=== PATIENT | female | born 1995 | race Caucasian/White ===

== ENCOUNTER 2016-07-26 14:55 | Emergency (ER) | payer MEDICAID | END 2016-07-26 18:33 | disposition home or self-care (01) | LOC: D.ER 14:55 | DX: J20.9 Acute bronchitis, unspecified (principal); J01.90 Acute sinusitis, unspecified; F41.9 Anxiety disorder, unspecified; F41.0 Panic disorder [episodic paroxysmal anxiety]; J45.909 Unspecified asthma, uncomplicated ==

== ENCOUNTER 2017-04-12 11:03 | Emergency (ER) | payer MEDICAID | END 2017-04-12 12:10 | disposition home or self-care (01) | LOC: D.ER 11:03 | DX: R51 Headache (principal) ==

== ENCOUNTER 2017-06-13 12:20 | Emergency (ER) | payer MEDICAID ==
[2017-06-13 12:48] LABS: BASOPHILS 0.1 % (0-2); EOSINOPHILS 1.3 % (0-7); HEMATOCRIT 40.8 % (36.0-48.0); HEMOGLOBIN 14.2 g/dL (12-16); IMMATURE GRANULOCYTES 0.1 % (0-5); LYMPHOCYTES 31.3 % (15-50); MCH 30.5 pg (26.0-34.0); MCHC 34.8 g/dL (31.0-37.0); MCV 87.6 fL (80.0-100.0); MEAN PLATELET VOLUME 9.5 fL (7.4-10.4); MONOCYTES 4.9 % (2-11); NEUTROPHILS 62.3 % (40-80); RBC 4.66 10x6/uL (4.00-5.40); RDW 12.4 % (11.5-14.5)
[2017-06-13 12:56] LABS: PLATELET COUNT 273 10x3/uL (130-400)
[2017-06-13 12:58] LABS: ALBUMIN 3.3 g/dL (3.4-5.0); ALKALINE PHOSPHATASE 105 U/L (46-116); ALT (SGPT) 27 U/L (10-68); BILIRUBIN - TOTAL 0.31 mg/dL (0.2-1.3); CALC OSMOLALITY 279 mosm/kg (275-300); CALCIUM 8.9 mg/dL (8.5-10.1); CARBON DIOXIDE 29.5 mmol/L (21.0-32.0); CHLORIDE - SERUM 106 mmol/L (98-107); CREATININE - SERUM 0.9 mg/dL (0.6-1.3); GLUCOSE 112 mg/dL (74-106); POTASSIUM - SERUM 3.7 mmol/L (3.5-5.1); PROTEIN - SERUM 7.3 g/dL (6.4-8.2); SODIUM 140 mmol/L (136-145); UREA NITROGEN 12 mg/dL (7-18); eGFR NON AFRICAN AMERICAN 82 mL/min (90-120)
[2017-06-13 13:03] LABS: TROPONIN-I < 0.017 ng/mL (0.000-0.060)
[2017-06-13 14:08] LABS: HCG URINE NEGATIVE (NEGATIVE)
[2017-06-13 14:19] LABS: APPEARANCE SLT CLOUDY (CLEAR); BILIRUBIN NEGATIVE (NEGATIVE); COLOR YELLOW (YELLOW); GLUCOSE NEGATIVE (NEGATIVE); KETONE NEGATIVE (NEGATIVE); NITRITE NEGATIVE (NEGATIVE); PROTEIN NEGATIVE (NEGATIVE); SPECIFIC GRAVITY 1.015 (1.005-1.020)
[2017-06-13 14:21] LABS: AMORPHOUS SEDIMENT <1+ /lpf (NONE SEEN); BACTERIA MODERATE /hpf (NONE SEEN); EPITHELIAL CELLS 0-5 /hpf (0-5); MUCUS <1+ /lpf (NONE SEEN); RED CELLS - URINE RARE /hpf (0-5)
== END 2017-06-13 14:37 | disposition home or self-care (01) ==
LOC: D.ER 12:20
PROVIDERS: Family Medicine; Nurse Practitioner Family
DX: R09.1 Pleurisy (principal); R07.89 Other chest pain

== ENCOUNTER 2017-06-17 20:19 | Emergency (ER) | payer MEDICAID | END 2017-06-17 21:54 | disposition home or self-care (01) | LOC: D.ER 20:19 | DX: R09.1 Pleurisy (principal) ==

== ENCOUNTER 2017-08-02 20:50 | Emergency (ER) | payer MEDICAID ==
[2017-08-02 21:55] LABS: BASOPHILS 0.2 % (0-2); EOSINOPHILS 0.7 % (0-7); HEMATOCRIT 43.5 % (36.0-48.0); HEMOGLOBIN 15.5 g/dL (12-16); IMMATURE GRANULOCYTES 0.1 % (0-5); LYMPHOCYTES 5.1 % (15-50); MCH 31.2 pg (26.0-34.0); MCHC 35.6 g/dL (31.0-37.0); MCV 87.5 fL (80.0-100.0); MEAN PLATELET VOLUME 9.6 fL (7.4-10.4); NEUTROPHILS 87.9 % (40-80); PLATELET COUNT 289 10x3/uL (130-400); RBC 4.97 10x6/uL (4.00-5.40); RDW 12.2 % (11.5-14.5); WBC 12.3 10x3/uL (4.8-10.8)
[2017-08-02 22:09] LABS: HCG URINE NEGATIVE (NEGATIVE)
[2017-08-02 22:10] LABS: APPEARANCE CLEAR (CLEAR); BILIRUBIN NEGATIVE (NEGATIVE); COLOR YELLOW (YELLOW); GLUCOSE NEGATIVE (NEGATIVE); KETONE MODERATE mg/dL (NEGATIVE); NITRITE NEGATIVE (NEGATIVE); PROTEIN NEGATIVE (NEGATIVE); UROBILINOGEN NORMAL (NORMAL)
[2017-08-02 22:12] LABS: BACTERIA FEW /hpf (NONE SEEN)
[2017-08-02 22:14] LABS: ALBUMIN 3.8 g/dL (3.4-5.0); ALKALINE PHOSPHATASE 91 U/L (46-116); ALT (SGPT) 23 U/L (10-68); AMYLASE - SERUM 75 U/L (25-115); BILIRUBIN - TOTAL 0.53 mg/dL (0.2-1.3); CALC OSMOLALITY 275 mosm/kg (275-300); CARBON DIOXIDE 27.1 mmol/L (21.0-32.0); CHLORIDE - SERUM 102 mmol/L (98-107); CREATININE - SERUM 0.9 mg/dL (0.6-1.3); GLUCOSE 110 mg/dL (74-106); LIPASE 150 U/L (73-393); POTASSIUM - SERUM 4.4 mmol/L (3.5-5.1); PROTEIN - SERUM 7.8 g/dL (6.4-8.2); SODIUM 137 mmol/L (136-145); UREA NITROGEN 16 mg/dL (7-18); eGFR NON AFRICAN AMERICAN 82 mL/min (90-120)
== END 2017-08-02 22:40 | disposition home or self-care (01) ==
LOC: D.ER 20:50
PROVIDERS: Emergency Medicine
DX: R10.11 Right upper quadrant pain (principal)

== ENCOUNTER 2017-09-01 11:15 | Emergency (ER) | payer MEDICAID ==
[2017-09-01 12:11] LABS: BASOPHILS 0.2 % (0-2); EOSINOPHILS 1.8 % (0-7); HEMATOCRIT 40.6 % (36.0-48.0); HEMOGLOBIN 14.1 g/dL (12-16); IMMATURE GRANULOCYTES 0.2 % (0-5); LYMPHOCYTES 25.9 % (15-50); MCH 30.2 pg (26.0-34.0); MCHC 34.7 g/dL (31.0-37.0); MCV 86.9 fL (80.0-100.0); MEAN PLATELET VOLUME 9.3 fL (7.4-10.4); MONOCYTES 4.9 % (2-11); PLATELET COUNT 313 10x3/uL (130-400); RBC 4.67 10x6/uL (4.00-5.40); RDW 12.2 % (11.5-14.5); WBC 8.3 10x3/uL (4.8-10.8)
[2017-09-01 12:14] LABS: APPEARANCE HAZY (CLEAR); BACTERIA MANY /hpf (NONE SEEN); BILIRUBIN NEGATIVE (NEGATIVE); COLOR YELLOW (YELLOW); GLUCOSE NEGATIVE (NEGATIVE); KETONE NEGATIVE (NEGATIVE); MUCUS <1+ /lpf (NONE SEEN); NITRITE NEGATIVE (NEGATIVE); PROTEIN NEGATIVE (NEGATIVE); RED CELLS - URINE 0-5 /hpf (0-5); UROBILINOGEN NORMAL (NORMAL)
[2017-09-01 12:40] LABS: ALBUMIN 3.6 g/dL (3.4-5.0); ALKALINE PHOSPHATASE 83 U/L (46-116); ALT (SGPT) 20 U/L (10-68); AMYLASE - SERUM 64 U/L (25-115); BILIRUBIN - TOTAL 0.48 mg/dL (0.2-1.3); C-REACTIVE PROTEIN 1.7 mg/dL (0.0-0.9); CALC OSMOLALITY 271 mosm/kg (275-300); CARBON DIOXIDE 26.5 mmol/L (21.0-32.0); CHLORIDE - SERUM 103 mmol/L (98-107); CREATININE - SERUM 0.8 mg/dL (0.6-1.3); GLUCOSE 85 mg/dL (74-106); LIPASE 122 U/L (73-393); POTASSIUM - SERUM 3.6 mmol/L (3.5-5.1); PROTEIN - SERUM 7.6 g/dL (6.4-8.2); SODIUM 137 mmol/L (136-145); UREA NITROGEN 10 mg/dL (7-18); eGFR NON AFRICAN AMERICAN > 90 mL/min (90-120)
[2017-10-08 00:36] VITALS: BMI 38.9
== END 2017-09-01 16:39 | disposition home or self-care (01) ==
LOC: D.ER 11:15
PROVIDERS: Emergency Medicine
DX: R10.9 Unspecified abdominal pain (principal); N39.0 Urinary tract infection, site not specified; N76.0 Acute vaginitis

== ENCOUNTER 2017-10-07 19:43 | Inpatient (IN) | payer MEDICAID ==
[~2017-10-07] VITALS: Ht 177.8 cm; Wt 132.8 kg
--- NOTE | ~2017-10-07 | CN ---
PATIENT NAME:BEBETO PATTON MEDICAL RECORD: [id number] : [birth year] LOCATION:[id number] ADMIT DATE: 10/07/17 ACCOUNT: [id number] CONSULTING PHYSICIAN: MICKI LAZO III, MD REFERRING PHYSICIAN: BLADIMIR RICHARDS DO DATE OF CONSULTATION: 10/08/2017 FINDINGS: A 22-year-old unmarried white female who was admitted through the Emergency Department following an intentional overdose of benzodiazepines and opiates. Drug screen was positive for both of these substances. The patient lefted very explicitly who did note addressed to her family apologizing for her suicide. The family has the note in their possession. The patient's father was interviewed at some length. The patient has been under extreme stress over the last several years. Her mother rather suddenly in 2015. The patient had been engaged for some time to a young man and was actually due to have him within the last week or so. However, he abruptly ended their relationship. The patient expressed in her note that she was devastated by this turn of events. The patient has been previously hospitalized at [facility]. At the present time, she is being followed at [facility] and is receiving medication for bipolar disorder. For some reason, however, she also had access to opiates. One of the listed medications on the intake form included Xanax 1 mg t.i.d. Other listed medications included Ambien, Abilify, and doxepin as well as hydrocodone. At the present time, the patient remains obtunded. She is receiving respiratory support secondary to her overdose. Under the circumstances, the patient should be considered an immediate threat to her own safety due to the fact that she has a preexisting mood disorder, has undergone severe crisis, and has made an obvious attempt on her own life. We would strongly recommend inpatient treatment. DIAGNOSTIC IMPRESSION: Bipolar disorder -- depressed phase. PLAN: WE would recommend inpatient treatment when medically stable. The patient's family indicated that they would prefer [facility]. TRANSINT:[id number] Voice Confirmation ID: [id number] DOCUMENT ID: [id number] MICKI LAZO III, MD at 2052 CC: [id number] DICTATION DATE: 10/08/17 121 LIQUEFACTION AND REGASIFICATION HELPER: 10/08/17 1238 ADM IN [facility] [address] [place] [address]
[2017-10-07 20:43] LABS: BASOPHILS 0.2 % (0-2); EOSINOPHILS 2.4 % (0-7); HEMATOCRIT 37.3 % (36.0-48.0); HEMOGLOBIN 12.9 g/dL (12-16); IMMATURE GRANULOCYTES 0.2 % (0-5); LYMPHOCYTES 35.2 % (15-50); MCH 30.3 pg (26.0-34.0); MCHC 34.6 g/dL (31.0-37.0); MCV 87.6 fL (80.0-100.0); MEAN PLATELET VOLUME 9.4 fL (7.4-10.4); MONOCYTES 5.6 % (2-11); NEUTROPHILS 56.4 % (40-80); PLATELET COUNT 268 10x3/uL (130-400); RBC 4.26 10x6/uL (4.00-5.40); RDW 12.8 % (11.5-14.5); WBC 8.8 10x3/uL (4.8-10.8)
[2017-10-07 20:54] LABS: HCG SERUM NEGATIVE (NEGATIVE)
[2017-10-07 20:55] LABS: UDS - AMPHET NEGATIVE QUAL (NEGATIVE); UDS - BARB NEGATIVE QUAL (NEGATIVE); UDS - BENZO POSITIVE QUAL (NEGATIVE); UDS - COCAINE NEGATIVE QUAL (NEGATIVE); UDS - OPIATE POSITIVE QUAL (NEGATIVE); UDS - PCP NEGATIVE QUAL (NEGATIVE); UDS - THC NEGATIVE QUAL (NEGATIVE)
[2017-10-07 20:56] LABS: ALBUMIN 3.1 g/dL (3.4-5.0); ALKALINE PHOSPHATASE 77 U/L (46-116); ALT (SGPT) 22 U/L (10-68); CALC OSMOLALITY 280 mosm/kg (275-300); CALCIUM 8.6 mg/dL (8.5-10.1); CARBON DIOXIDE 22.4 mmol/L (21.0-32.0); CHLORIDE - SERUM 109 mmol/L (98-107); CREATININE - SERUM 0.8 mg/dL (0.6-1.3); GLUCOSE 99 mg/dL (74-106); PROTEIN - SERUM 6.6 g/dL (6.4-8.2); SODIUM 141 mmol/L (136-145); UREA NITROGEN 12 mg/dL (7-18); eGFR NON AFRICAN AMERICAN > 90 mL/min (90-120)
[2017-10-08] VITALS (27 sets, daily range): BP systolic 102–167; BP diastolic 59–98; Ht 177.8 cm; Wt 132.8 kg
[2017-10-08] MEDS ORDERED: XANAX1 MG PO ×2 (01:20→10:31)
[2017-10-08] MEDS ORDERED: LAMICTAL200 MG PO (01:21)
[2017-10-08] MEDS ORDERED: AMBIEN10 MG PO (01:21)
[2017-10-08] MEDS ORDERED: DOXEPIN HCL ×2 (01:22→01:26)
[2017-10-08] MEDS ORDERED: PROMETHAZINE (01:22)
[2017-10-08] MEDS ORDERED: MACROBID100 MG (01:23)
[2017-10-08] MEDS ORDERED: PHENERGAN25 M1 (01:23)
[2017-10-08] MEDS ORDERED: FLAGYL500 MG (01:23)
[2017-10-08] MEDS ORDERED: HYDROCODON-ACE1 EAC7 (01:23)
[2017-10-08] MEDS ORDERED: ABILIFY10 MG (01:24)
[2017-10-08] MEDS ORDERED: NAPROSYN500 MG (01:24)
[2017-10-08] MEDS ORDERED: PROPRANOLOL HCL20 MG (01:24)
[2017-10-08] MEDS ORDERED: ZANTAC150 MG (01:25)
[2017-10-08] MEDS ORDERED: ETHINYL ESTRADIOL ×2 (01:25→01:26)
[2017-10-08] MEDS ORDERED: ETONOGESTREL ×2 (01:25→01:26)
[2017-10-08] MEDS ORDERED: ARIPIPRAZOLE TAB 5MG (01:25)
[2017-10-08] MEDS ORDERED: TAMIFLU75 MG (01:26)
[2017-10-08] MEDS ORDERED: ATOMOXETINE (01:26)
[2017-10-08 04:34] LABS: BASOPHILS 0.2 % (0-2); EOSINOPHILS 1.8 % (0-7); HEMATOCRIT 37.6 % (36.0-48.0); HEMOGLOBIN 12.9 g/dL (12-16); IMMATURE GRANULOCYTES 0.1 % (0-5); LYMPHOCYTES 23.2 % (15-50); MCH 29.8 pg (26.0-34.0); MCHC 34.3 g/dL (31.0-37.0); MCV 86.8 fL (80.0-100.0); MEAN PLATELET VOLUME 9.6 fL (7.4-10.4); MONOCYTES 7.5 % (2-11); NEUTROPHILS 67.2 % (40-80); PLATELET COUNT 276 10x3/uL (130-400); RBC 4.33 10x6/uL (4.00-5.40); RDW 12.6 % (11.5-14.5); WBC 8.3 10x3/uL (4.8-10.8)
[2017-10-08 04:57] LABS: ALBUMIN 3.1 g/dL (3.4-5.0); ALKALINE PHOSPHATASE 74 U/L (46-116); ALT (SGPT) 22 U/L (10-68); BILIRUBIN - TOTAL 0.52 mg/dL (0.2-1.3); CALC OSMOLALITY 281 mosm/kg (275-300); CALCIUM 8.5 mg/dL (8.5-10.1); CARBON DIOXIDE 25.2 mmol/L (21.0-32.0); CHLORIDE - SERUM 107 mmol/L (98-107); CREATININE - SERUM 0.8 mg/dL (0.6-1.3); GLUCOSE 96 mg/dL (74-106); MAGNESIUM - SERUM 1.9 mg/dL (1.8-2.4); POTASSIUM - SERUM 3.5 mmol/L (3.5-5.1); PROTEIN - SERUM 6.8 g/dL (6.4-8.2); SODIUM 142 mmol/L (136-145); UREA NITROGEN 9 mg/dL (7-18); eGFR NON AFRICAN AMERICAN > 90 mL/min (90-120)
[2017-10-08] MEDS ORDERED: SINEQUAN50 MG PO (10:32)
[2017-10-08] MEDS ORDERED: LAMICTAL XR200 MG PO (10:32)
[2017-10-08] MEDS ORDERED: PHENERGAN25 M1 PO (10:33)
[2017-10-08] MEDS ORDERED: PROPRANOLOL HCL20 MG PO (10:34)
[2017-10-08] MEDS ORDERED: ZANTAC150 MG PO (10:34)
[2017-10-09] VITALS (24 sets, daily range): BP systolic 99–157; BP diastolic 60–91
[2017-10-09 04:31] LABS: BASOPHILS 0.2 % (0-2); EOSINOPHILS 1.9 % (0-7); HEMOGLOBIN 12.7 g/dL (12-16); IMMATURE GRANULOCYTES 0.3 % (0-5); LYMPHOCYTES 19.9 % (15-50); MCH 30.4 pg (26.0-34.0); MCHC 34.3 g/dL (31.0-37.0); MCV 88.5 fL (80.0-100.0); MEAN PLATELET VOLUME 9.5 fL (7.4-10.4); MONOCYTES 7.8 % (2-11); NEUTROPHILS 69.9 % (40-80); PLATELET COUNT 241 10x3/uL (130-400); RBC 4.18 10x6/uL (4.00-5.40); RDW 12.9 % (11.5-14.5)
[2017-10-09 04:51] LABS: ALBUMIN 2.7 g/dL (3.4-5.0); ALKALINE PHOSPHATASE 75 U/L (46-116); ALT (SGPT) 16 U/L (10-68); CALC OSMOLALITY 281 mosm/kg (275-300); CALCIUM 8.4 mg/dL (8.5-10.1); CARBON DIOXIDE 26.3 mmol/L (21.0-32.0); CHLORIDE - SERUM 108 mmol/L (98-107); CREATININE - SERUM 0.8 mg/dL (0.6-1.3); GLUCOSE 96 mg/dL (74-106); MAGNESIUM - SERUM 1.7 mg/dL (1.8-2.4); PHOSPHOROUS 4.3 mg/dL (2.5-4.9); POTASSIUM - SERUM 3.4 mmol/L (3.5-5.1); PROTEIN - SERUM 6.3 g/dL (6.4-8.2); SODIUM 143 mmol/L (136-145); UREA NITROGEN 5 mg/dL (7-18); VANCOMYCIN - TROUGH 4.6 ug/mL (10.0-20.0); eGFR NON AFRICAN AMERICAN > 90 mL/min (90-120)
[2017-10-10] VITALS (19 sets, daily range): BP systolic 102–139; BP diastolic 60–93
[2017-10-10 03:42] LABS: BASOPHILS 0.2 % (0-2); EOSINOPHILS 1.5 % (0-7); HEMATOCRIT 34.9 % (36.0-48.0); HEMOGLOBIN 11.8 g/dL (12-16); IMMATURE GRANULOCYTES 0.1 % (0-5); LYMPHOCYTES 17.1 % (15-50); MCH 29.8 pg (26.0-34.0); MCHC 33.8 g/dL (31.0-37.0); MCV 88.1 fL (80.0-100.0); MEAN PLATELET VOLUME 9.2 fL (7.4-10.4); MONOCYTES 8.2 % (2-11); NEUTROPHILS 72.9 % (40-80); PLATELET COUNT 224 10x3/uL (130-400); RBC 3.96 10x6/uL (4.00-5.40); RDW 12.9 % (11.5-14.5); WBC 10.4 10x3/uL (4.8-10.8)
[2017-10-10 04:15] LABS: CALC OSMOLALITY 275 mosm/kg (275-300); CALCIUM 8.2 mg/dL (8.5-10.1); CARBON DIOXIDE 26.4 mmol/L (21.0-32.0); CHLORIDE - SERUM 106 mmol/L (98-107); CREATININE - SERUM 0.8 mg/dL (0.6-1.3); GLUCOSE 108 mg/dL (74-106); MAGNESIUM - SERUM 1.7 mg/dL (1.8-2.4); PHOSPHOROUS 5.1 mg/dL (2.5-4.9); SODIUM 139 mmol/L (136-145); UREA NITROGEN 5 mg/dL (7-18); eGFR NON AFRICAN AMERICAN > 90 mL/min (90-120)
[2017-10-10 18:10] LABS: AFB SPECIMEN PROCESSING Concentration (())
[2017-10-11] VITALS (8 sets, daily range): BP systolic 135–151; BP diastolic 80–96
[2017-10-11 04:08] LABS: BASOPHILS 0.2 % (0-2); EOSINOPHILS 4.1 % (0-7); HEMATOCRIT 35.9 % (36.0-48.0); HEMOGLOBIN 12.2 g/dL (12-16); IMMATURE GRANULOCYTES 0.1 % (0-5); LYMPHOCYTES 21.2 % (15-50); MCH 29.9 pg (26.0-34.0); MEAN PLATELET VOLUME 9.3 fL (7.4-10.4); MONOCYTES 7.9 % (2-11); NEUTROPHILS 66.5 % (40-80); PLATELET COUNT 239 10x3/uL (130-400); RBC 4.08 10x6/uL (4.00-5.40); RDW 12.8 % (11.5-14.5)
[2017-10-11 04:26] LABS: CALC OSMOLALITY 280 mosm/kg (275-300); CALCIUM 8.6 mg/dL (8.5-10.1); CARBON DIOXIDE 24.8 mmol/L (21.0-32.0); CHLORIDE - SERUM 107 mmol/L (98-107); CREATININE - SERUM 0.8 mg/dL (0.6-1.3); GLUCOSE 115 mg/dL (74-106); POTASSIUM - SERUM 3.4 mmol/L (3.5-5.1); SODIUM 142 mmol/L (136-145); UREA NITROGEN 4 mg/dL (7-18); eGFR NON AFRICAN AMERICAN > 90 mL/min (90-120)
[2017-10-11] MEDS ORDERED: VENTOLIN HFA18 GM IH (15:56)
[2017-10-11] MEDS ORDERED: OMNICEF300 MG PO (16:03)
[2017-10-11] MEDS ORDERED: VIBRAMYCIN 100100 MG PO (16:04)
[2017-10-11] MEDS ORDERED: MUCINEX600 MG PO (16:40)
[2017-10-13 11:13] LABS: FUNGUS STAIN Final report (())
[2017-11-07 17:12] LABS: FUNGUS MYCOLOGY CULTURE Final report (())
[2017-12-01 18:09] LABS: ACID FAST CULTURE Negative (()); ACID FAST SMEAR Negative (())
== END 2017-10-11 17:40 | disposition short-term general hospital (02) | DRG 917 ==
LOC: D.ER 19:43 → D.ICU 21:50 → D.EDHOLD 21:50 → D.ICU 22:52
PROVIDERS: Family Medicine; Internal Medicine Pulmonary Disease
PROC: 0BH17EZ Insertion of Endotracheal Airway into Trachea, Via Natural or Artificial Opening (ICD-10-PCS; 2017-10-07)
PROC: 5A1945Z Respiratory Ventilation, 24-96 Consecutive Hours (ICD-10-PCS; principal; 2017-10-08)
PROC: 0B978ZZ Drainage of Left Main Bronchus, Via Natural or Artificial Opening Endoscopic (ICD-10-PCS; 2017-10-08)
PROC: 0B938ZZ Drainage of Right Main Bronchus, Via Natural or Artificial Opening Endoscopic (ICD-10-PCS; 2017-10-08)
DX: T42.6X2A Poisoning by other antiepileptic and sedative-hypnotic drugs, intentional self-harm, initial encounter (principal); J96.00 Acute respiratory failure, unspecified whether with hypoxia or hypercapnia; J69.0 Pneumonitis due to inhalation of food and vomit; F33.9 Major depressive disorder, recurrent, unspecified; J45.909 Unspecified asthma, uncomplicated; F41.8 Other specified anxiety disorders

== ENCOUNTER 2018-03-04 20:46 | Emergency (ER) | payer MEDICAID ==
[~2018-03-04] VITALS: Ht 177.8 cm; Wt 110.5 kg
[~2018-03-04 20:46] MED LIST: ABILIFY10 MG; AMBIEN10 MG PO; ARIPIPRAZOLE TAB 5MG; ATOMOXETINE; DOXEPIN HCL; ETHINYL ESTRADIOL; ETONOGESTREL; FLAGYL500 MG; HYDROCODON-ACE1 EAC7; LAMICTAL XR200 MG PO; LAMICTAL200 MG PO; MACROBID100 MG; MUCINEX600 MG PO; NAPROSYN500 MG; OMNICEF300 MG PO; PHENERGAN25 M1; PHENERGAN25 M1 PO; PROMETHAZINE; PROPRANOLOL HCL20 MG; PROPRANOLOL HCL20 MG PO; SINEQUAN50 MG PO; TAMIFLU75 MG; VENTOLIN HFA18 GM IH; VIBRAMYCIN 100100 MG PO; XANAX1 MG PO; ZANTAC150 MG; ZANTAC150 MG PO
[2018-03-04 21:10] VITALS: Ht 177.8 cm; Wt 110.5 kg
[2018-03-04] MEDS ORDERED: ABILIFY10 MG (21:11)
[2018-03-04] MEDS ORDERED: BUPROPION HCL75 MG PO (21:11)
[2018-03-04] MEDS ORDERED: PHENERGAN25 M1 PO (22:31)
[2018-03-04 22:54] VITALS: BP 105/68
== END 2018-03-04 22:53 | disposition home or self-care (01) ==
LOC: D.ER 20:46
DX: G43.909 Migraine, unspecified, not intractable, without status migrainosus (principal); R11.0 Nausea

== ENCOUNTER 2018-03-12 18:22 | Emergency (ER) | payer MEDICAID ==
[~2018-03-12] VITALS: Ht 177.8 cm; Wt 110.0 kg
[~2018-03-12 18:22] MED LIST changes: +BUPROPION HCL75 MG PO
[2018-03-12 18:40] VITALS: Ht 177.8 cm; Wt 110.0 kg
[2018-03-12 19:07] LABS: BASOPHILS 0.1 % (0-2); EOSINOPHILS 0.8 % (0-7); HEMATOCRIT 41.7 % (36.0-48.0); HEMOGLOBIN 14.8 g/dL (12-16); IMMATURE GRANULOCYTES 0.1 % (0-5); LYMPHOCYTES 26.4 % (15-50); MCHC 35.5 g/dL (31.0-37.0); MCV 87.2 fL (80.0-100.0); MEAN PLATELET VOLUME 9.6 fL (7.4-10.4); MONOCYTES 6.3 % (2-11); NEUTROPHILS 66.3 % (40-80); RBC 4.78 10x6/uL (4.00-5.40); RDW 12.5 % (11.5-14.5); WBC 8.3 10x3/uL (4.8-10.8)
[2018-03-12 19:12] LABS: PLATELET COUNT 312 10x3/uL (130-400)
[2018-03-12 19:37] LABS: ALBUMIN 3.5 g/dL (3.4-5.0); ALKALINE PHOSPHATASE 90 U/L (46-116); ALT (SGPT) 25 U/L (10-68); BILIRUBIN - TOTAL 0.21 mg/dL (0.2-1.3); CALC OSMOLALITY 278 mosm/kg (275-300); CALCIUM 9.1 mg/dL (8.5-10.1); CARBON DIOXIDE 28.6 mmol/L (21.0-32.0); CHLORIDE - SERUM 101 mmol/L (98-107); CREATININE - SERUM 0.9 mg/dL (0.6-1.3); GLUCOSE 100 mg/dL (74-106); POTASSIUM - SERUM 3.8 mmol/L (3.5-5.1); SODIUM 140 mmol/L (136-145); UREA NITROGEN 13 mg/dL (7-18); eGFR NON AFRICAN AMERICAN 82 mL/min (90-120)
[2018-03-12 21:15] LABS: APPEARANCE CLOUDY (CLEAR); BILIRUBIN NEGATIVE (NEGATIVE); COLOR YELLOW (YELLOW); GLUCOSE NEGATIVE (NEGATIVE); KETONE NEGATIVE (NEGATIVE); NITRITE NEGATIVE (NEGATIVE); PROTEIN NEGATIVE (NEGATIVE); SPECIFIC GRAVITY 1.015 (1.005-1.020); UROBILINOGEN NORMAL (NORMAL)
[2018-03-12 21:30] LABS: BACTERIA FEW /hpf (NONE SEEN); EPITHELIAL CELLS 0-5 /hpf (0-5); RED CELLS - URINE 0-5 /hpf (0-5); WHITE CELLS - URINE 0-5 /hpf (0-5)
[2018-03-12 22:48] VITALS: BP 122/76
== END 2018-03-12 22:15 | disposition home or self-care (01) ==
LOC: D.ER 18:22
PROVIDERS: Emergency Medicine; Family Medicine
DX: R55 Syncope and collapse (principal); S09.90XA Unspecified injury of head, initial encounter; W18.30XA Fall on same level, unspecified, initial encounter; Y93.89 Activity, other specified; Y92.019 Unspecified place in single-family (private) house as the place of occurrence of the external cause; S00.03XA Contusion of scalp, initial encounter

== ENCOUNTER 2018-04-10 13:05 | Emergency (ER) | payer MEDICAID ==
[~2018-04-10] VITALS: Ht 177.8 cm; Wt 111.8 kg
[2018-04-10 13:12] VITALS: Ht 177.8 cm; Wt 111.8 kg
[2018-04-10] MEDS ORDERED: ATIVAN0.5 MG (13:15)
[2018-04-10] MEDS ORDERED: ATIVAN0.5 MG PO (13:15)
[2018-04-10 13:43] LABS: BASOPHILS 0.2 % (0-2); EOSINOPHILS 0.7 % (0-7); HEMATOCRIT 43.5 % (36.0-48.0); IMMATURE GRANULOCYTES 0.1 % (0-5); LYMPHOCYTES 24.9 % (15-50); MCH 30.6 pg (26.0-34.0); MCHC 34.5 g/dL (31.0-37.0); MCV 88.8 fL (80.0-100.0); MEAN PLATELET VOLUME 9.7 fL (7.4-10.4); MONOCYTES 6.7 % (2-11); NEUTROPHILS 67.4 % (40-80); PLATELET COUNT 314 10x3/uL (130-400); RDW 12.6 % (11.5-14.5); WBC 10.3 10x3/uL (4.8-10.8)
[2018-04-10 13:49] LABS: APTT 50.3 SECONDS (22.8-39.4); INR 1.1 (0.85-1.17); PROTIME 13.8 SECONDS (11.6-15.0)
[2018-04-10 13:54] LABS: ALBUMIN 3.6 g/dL (3.4-5.0); ALKALINE PHOSPHATASE 84 U/L (46-116); ALT (SGPT) 21 U/L (10-68); BILIRUBIN - TOTAL 0.25 mg/dL (0.2-1.3); CALC OSMOLALITY 276 mosm/kg (275-300); CALCIUM 9.1 mg/dL (8.5-10.1); CARBON DIOXIDE 28.3 mmol/L (21.0-32.0); CHLORIDE - SERUM 103 mmol/L (98-107); CREATININE - SERUM 0.8 mg/dL (0.6-1.3); GLUCOSE 103 mg/dL (74-106); POTASSIUM - SERUM 3.9 mmol/L (3.5-5.1); PROTEIN - SERUM 7.8 g/dL (6.4-8.2); SODIUM 139 mmol/L (136-145); UREA NITROGEN 10 mg/dL (7-18); eGFR NON AFRICAN AMERICAN > 90 mL/min (90-120)
[2018-04-10 14:00] LABS: HCG SERUM NEGATIVE (NEGATIVE)
[2018-04-10] MEDS ORDERED: TORADOL10 MG PO (16:00)
[2018-04-10 16:49] VITALS: BP 122/76
== END 2018-04-10 16:49 | disposition home or self-care (01) ==
LOC: D.ER 13:05
PROVIDERS: Family Medicine
DX: S01.01XA Laceration without foreign body of scalp, initial encounter (principal); V43.52XA Car driver injured in collision with other type car in traffic accident, initial encounter; Y93.89 Activity, other specified; Y92.410 Unspecified street and highway as the place of occurrence of the external cause; M25.562 Pain in left knee; M25.511 Pain in right shoulder

== ENCOUNTER 2018-04-12 23:10 | Emergency (ER) | payer MEDICAID ==
[~2018-04-12] VITALS: Ht 177.8 cm; Wt 111.8 kg
[~2018-04-12 23:10] MED LIST changes: +ATIVAN0.5 MG; +ATIVAN0.5 MG PO; +TORADOL10 MG PO
[2018-04-12 23:22] VITALS: Ht 177.8 cm; Wt 111.8 kg
[2018-04-13] MEDS ORDERED: BUTALB-APAP-CA1 EACH PO (00:36)
[2018-04-13 01:12] VITALS: BP 140/75
== END 2018-04-13 01:13 | disposition home or self-care (01) ==
LOC: D.ER 23:10
DX: F07.81 Postconcussional syndrome (principal)

== ENCOUNTER 2018-06-11 11:12 | Emergency (ER) | payer MEDICAID ==
[~2018-06-11] VITALS: Ht 177.8 cm; Wt 115.5 kg
[~2018-06-11 11:12] MED LIST changes: +BUTALB-APAP-CA1 EACH PO
[2018-06-11 11:22] VITALS: BP 128/77; Ht 177.8 cm; Wt 115.5 kg
[2018-06-11] MEDS ORDERED: NUVA RING (11:23)
[2018-06-11] MEDS ORDERED: TESSALON PERLE100 MG PO (12:58)
[2018-06-11] MEDS ORDERED: ZPAK PO (12:58)
[2018-06-11] MEDS ORDERED: ALBUTEROL SULF8.5 GM INH (12:58)
== END 2018-06-11 13:37 | disposition home or self-care (01) ==
LOC: D.ER 11:12
DX: J40 Bronchitis, not specified as acute or chronic (principal); Z87.09 Personal history of other diseases of the respiratory system; R09.89 Other specified symptoms and signs involving the circulatory and respiratory systems; R50.9 Fever, unspecified

== ENCOUNTER 2018-07-19 01:07 | Emergency (ER) | payer MEDICAID ==
[~2018-07-19] VITALS: Ht 177.8 cm; Wt 110.0 kg
[~2018-07-19 01:07] MED LIST changes: +ALBUTEROL SULF8.5 GM INH; +NUVA RING; +TESSALON PERLE100 MG PO; +ZPAK PO
[2018-07-19 01:10] VITALS: Ht 177.8 cm; Wt 110.0 kg
[2018-07-19 01:33] LABS: BASOPHILS 0.2 % (0-2); EOSINOPHILS 0.8 % (0-7); HEMATOCRIT 41.9 % (36.0-48.0); HEMOGLOBIN 14.5 g/dL (12-16); IMMATURE GRANULOCYTES 0.2 % (0-5); LYMPHOCYTES 28.5 % (15-50); MCH 30.6 pg (26.0-34.0); MCHC 34.6 g/dL (31.0-37.0); MCV 88.4 fL (80.0-100.0); MEAN PLATELET VOLUME 9.6 fL (7.4-10.4); MONOCYTES 6.9 % (2-11); NEUTROPHILS 63.4 % (40-80); PLATELET COUNT 296 10x3/uL (130-400); RBC 4.74 10x6/uL (4.00-5.40); RDW 12.4 % (11.5-14.5); WBC 11.4 10x3/uL (4.8-10.8)
[2018-07-19 01:37] LABS: APPEARANCE CLEAR (CLEAR); BILIRUBIN NEGATIVE (NEGATIVE); COLOR YELLOW (YELLOW); GLUCOSE NEGATIVE (NEGATIVE); HCG URINE NEGATIVE (NEGATIVE); KETONE NEGATIVE (NEGATIVE); NITRITE NEGATIVE (NEGATIVE); PROTEIN NEGATIVE (NEGATIVE); SPECIFIC GRAVITY 1.015 (1.005-1.020); UROBILINOGEN NORMAL (NORMAL)
[2018-07-19 01:47] LABS: ALBUMIN 3.5 g/dL (3.4-5.0); ALKALINE PHOSPHATASE 69 U/L (46-116); ALT (SGPT) 28 U/L (10-68); BILIRUBIN - TOTAL 0.25 mg/dL (0.2-1.3); CALC OSMOLALITY 281 mosm/kg (275-300); CALCIUM 8.5 mg/dL (8.5-10.1); CARBON DIOXIDE 31.1 mmol/L (21.0-32.0); CHLORIDE - SERUM 103 mmol/L (98-107); GLUCOSE 94 mg/dL (74-106); POTASSIUM - SERUM 3.6 mmol/L (3.5-5.1); PROTEIN - SERUM 7.4 g/dL (6.4-8.2); SODIUM 141 mmol/L (136-145); UREA NITROGEN 14 mg/dL (7-18); eGFR NON AFRICAN AMERICAN 72 mL/min (90-120)
[2018-07-19 01:52] LABS: AMYLASE - SERUM 66 U/L (25-115); LIPASE 177 U/L (73-393); TROPONIN-I < 0.017 ng/mL (0.000-0.060)
[2018-07-19 02:42] VITALS: BP 128/70
== END 2018-07-19 02:40 | disposition home or self-care (01) ==
LOC: D.ER 01:07
PROVIDERS: Emergency Medicine
DX: R10.32 Left lower quadrant pain (principal); R11.10 Vomiting, unspecified

== ENCOUNTER 2018-11-05 14:50 | Emergency (ER) | payer MEDICAID ==
[~2018-11-05] VITALS: Ht 177.8 cm; Wt 105.9 kg
[2018-11-05 15:02] VITALS: Ht 177.8 cm; Wt 105.9 kg
[2018-11-05 15:43] LABS: BASOPHILS 0.2 % (0-2); EOSINOPHILS 0.3 % (0-7); HEMATOCRIT 41.5 % (36.0-48.0); HEMOGLOBIN 14.6 g/dL (12-16); IMMATURE GRANULOCYTES 0.1 % (0-5); MCH 31.3 pg (26.0-34.0); MCHC 35.2 g/dL (31.0-37.0); MCV 88.9 fL (80.0-100.0); MEAN PLATELET VOLUME 9.6 fL (7.4-10.4); MONOCYTES 4.8 % (2-11); NEUTROPHILS 65.6 % (40-80); PLATELET COUNT 312 10x3/uL (130-400); RBC 4.67 10x6/uL (4.00-5.40); RDW 12.6 % (11.5-14.5); WBC 9.3 10x3/uL (4.8-10.8)
[2018-11-05 15:59] LABS: ALBUMIN 3.6 g/dL (3.4-5.0); ALKALINE PHOSPHATASE 72 U/L (46-116); ALT (SGPT) 25 U/L (10-68); BILIRUBIN - TOTAL 0.31 mg/dL (0.2-1.3); CALC OSMOLALITY 275 mosm/kg (275-300); CARBON DIOXIDE 26.9 mmol/L (21.0-32.0); CHLORIDE - SERUM 104 mmol/L (98-107); CREATININE - SERUM 0.7 mg/dL (0.6-1.3); GLUCOSE 86 mg/dL (74-106); POTASSIUM - SERUM 3.8 mmol/L (3.5-5.1); PROTEIN - SERUM 7.7 g/dL (6.4-8.2); SODIUM 139 mmol/L (136-145); UREA NITROGEN 11 mg/dL (7-18); eGFR NON AFRICAN AMERICAN > 90 mL/min (90-120)
[2018-11-05 16:10] LABS: CKMB 1.1 U/L (0.0-3.6); CREATINE KINASE 167 UL (21-215)
[2018-11-05 16:12] LABS: TROPONIN-I < 0.017 ng/mL (0.000-0.060)
[2018-11-05 16:31] LABS: PROTIME 13.1 SECONDS (11.6-15.0)
[2018-11-05 16:34] LABS: APTT 32.3 SECONDS (22.8-39.4)
[2018-11-05 19:36] VITALS: BP 125/79
== END 2018-11-05 19:36 | disposition home or self-care (01) ==
LOC: D.ER 14:50
PROVIDERS: Family Medicine
DX: R07.89 Other chest pain (principal); F41.9 Anxiety disorder, unspecified

== ENCOUNTER 2018-11-15 19:30 | Emergency (ER) | payer MEDICAID ==
[~2018-11-15] VITALS: Ht 177.8 cm; Wt 105.5 kg
[2018-11-15 19:34] VITALS: Ht 177.8 cm; Wt 105.5 kg
[2018-11-15] MEDS ORDERED: VOLTAREN75 MG PO (21:32)
[2018-11-15] MEDS ORDERED: AUGMENTIN 875-11 TAB PO (21:32)
[2018-11-15 21:46] VITALS: BP 148/80
== END 2018-11-15 21:47 | disposition home or self-care (01) ==
LOC: D.ER 19:30
DX: L03.116 Cellulitis of left lower limb (principal); S90.572A Other superficial bite of ankle, left ankle, initial encounter; W54.0XXA Bitten by dog, initial encounter; Y93.89 Activity, other specified; Y92.89 Other specified places as the place of occurrence of the external cause

== ENCOUNTER 2018-11-18 15:32 | Inpatient (IN) | payer MEDICAID ==
[~2018-11-18 15:32] MED LIST changes: +AUGMENTIN 875-11 TAB PO; +VOLTAREN75 MG PO
[2018-11-18 16:05] VITALS: BP 123/72; BMI 33.8
[2018-11-18 16:50] LABS: BASOPHILS 0.2 % (0-2); EOSINOPHILS 0.6 % (0-7); HEMATOCRIT 39.3 % (36.0-48.0); HEMOGLOBIN 13.8 g/dL (12-16); IMMATURE GRANULOCYTES 0.1 % (0-5); LYMPHOCYTES 30.6 % (15-50); MCH 31.2 pg (26.0-34.0); MCHC 35.1 g/dL (31.0-37.0); MCV 88.7 fL (80.0-100.0); MEAN PLATELET VOLUME 9.8 fL (7.4-10.4); MONOCYTES 6.1 % (2-11); NEUTROPHILS 62.4 % (40-80); PLATELET COUNT 285 10x3/uL (130-400); RBC 4.43 10x6/uL (4.00-5.40); RDW 12.4 % (11.5-14.5); WBC 8.2 10x3/uL (4.8-10.8)
[2018-11-18 17:03] LABS: C-REACTIVE PROTEIN 2.4 mg/dL (0.0-0.9); CALC OSMOLALITY 284 mosm/kg (275-300); CALCIUM 8.6 mg/dL (8.5-10.1); CARBON DIOXIDE 28.9 mmol/L (21.0-32.0); CHLORIDE - SERUM 106 mmol/L (98-107); CREATININE - SERUM 0.9 mg/dL (0.6-1.3); GLUCOSE 82 mg/dL (74-106); POTASSIUM - SERUM 3.8 mmol/L (3.5-5.1); SODIUM 143 mmol/L (136-145); UREA NITROGEN 14 mg/dL (7-18); eGFR NON AFRICAN AMERICAN 81 mL/min (90-120)
[2018-11-18 18:03] LABS: ERYTHROCYTE SEDIMENTATION RATE 10 mm/hr (0-20)
--- NOTE | 2018-11-18 19:03 | NUR ---
PT SITTING UP IN BED COLORING IN COLORING BOOK. NO S/S OF ACUTE DISTRESS. CL IN PLACE.
[2018-11-18 20:26] LABS: HCG URINE NEGATIVE (NEGATIVE)
[2018-11-18 20:58] VITALS: BP 116/54
--- NOTE | 2018-11-19 00:33 | NUR ---
I have reviewed this patient and I concur with the Shift Assessment completed by the Licensed Practical Nurse today this shift.
[2018-11-19 01:35] VITALS: BP 130/64
--- NOTE | 2018-11-19 02:22 | NUR ---
BED RESTING IN BED. EYES CLOSED. NO SIGNS OF DISTRESS. BREATHING EVEN AND UNLABORED. WILL CONTINUE PLAN OF CARE. CALL LIGHT IN REACH.
[2018-11-19 05:02] LABS: BASOPHILS 0.2 % (0-2); EOSINOPHILS 1.1 % (0-7); HEMATOCRIT 37.4 % (36.0-48.0); HEMOGLOBIN 12.9 g/dL (12-16); IMMATURE GRANULOCYTES 0.1 % (0-5); LYMPHOCYTES 35.7 % (15-50); MCH 30.9 pg (26.0-34.0); MCHC 34.5 g/dL (31.0-37.0); MCV 89.5 fL (80.0-100.0); MEAN PLATELET VOLUME 9.3 fL (7.4-10.4); NEUTROPHILS 52.9 % (40-80); PLATELET COUNT 250 10x3/uL (130-400); RBC 4.18 10x6/uL (4.00-5.40); RDW 12.5 % (11.5-14.5)
[2018-11-19 05:25] VITALS: BP 120/57
[2018-11-19 05:30] LABS: ANION GAP 9.4 mmol/L (8-16); CALCIUM 8.5 mg/dL (8.5-10.1); CARBON DIOXIDE 29.7 mmol/L (21.0-32.0); POTASSIUM - SERUM 4.1 mmol/L (3.5-5.1)
--- NOTE | 2018-11-19 07:42 | NUR ---
PT RESTING IN BED. CHEST RISING AND FALLING. NO S/S OF ACUTE DISTRESS. CL IN PLACE.
[2018-11-19 08:42] VITALS: BP 103/59
[2018-11-19 11:42] VITALS: BMI 33.8
[2018-11-19 13:07] VITALS: BP 103/44
--- NOTE | 2018-11-19 18:55 | NUR ---
PT IN SURGERY
--- NOTE | 2018-11-19 19:30 | NUR ---
PT RETURNED FROM SURGERY ALERT AND ORIENTED. DENIES PAIN AT THIS TIME. VITAL SIGNS STABLE. EATING SANDWICH WHEN ENTERING ROOM THAT FAMILY PROVIDED.
--- NOTE | 2018-11-19 20:00 | NUR ---
PT LEFT ANKLE WARM TO TOUCH. BANDAGE IN PLACE. PT RATES PAIN 3/. DRESSING CLEAN DRY AND INTACT. PT ABLE TO WIGGLE TOES. ASSISTED TO BATHROOM AND BACK. DENIES FURTHER ISSUES AT THIS TIME. CALL LIGHT IN REACH.
[2018-11-20 03:05] VITALS: BP 170/64
[2018-11-20 06:13] VITALS: BP 104/59
[2018-11-20 06:51] LABS: HCG URINE NEGATIVE (NEGATIVE)
[2018-11-20 07:17] LABS: BASOPHILS 0 % (0-2); EOSINOPHILS 0 % (0-7); IMMATURE GRANULOCYTES 0.2 % (0-5); MCH 30.8 pg (26.0-34.0); MCV 87.9 fL (80.0-100.0); MEAN PLATELET VOLUME 9.7 fL (7.4-10.4); MONOCYTES 2.7 % (2-11); NEUTROPHILS 88.1 % (40-80); RBC 4.55 10x6/uL (4.00-5.40); RDW 11.9 % (11.5-14.5)
[2018-11-20 07:19] LABS: PLATELET COUNT 343 10x3/uL (130-400); WBC 12.3 10x3/uL (4.8-10.8)
[2018-11-20 07:29] LABS: CALC OSMOLALITY 277 mosm/kg (275-300); CALCIUM 8.6 mg/dL (8.5-10.1); CARBON DIOXIDE 24.6 mmol/L (21.0-32.0); CHLORIDE - SERUM 104 mmol/L (98-107); CREATININE - SERUM 0.8 mg/dL (0.6-1.3); GLUCOSE 117 mg/dL (74-106); POTASSIUM - SERUM 4.1 mmol/L (3.5-5.1); SODIUM 138 mmol/L (136-145); UREA NITROGEN 14 mg/dL (7-18); eGFR NON AFRICAN AMERICAN > 90 mL/min (90-120)
[2018-11-20] MEDS ORDERED: SULFAMETHOXAZOL1 TA3 PO (07:32)
[2018-11-20] MEDS ORDERED: HYDROCODON-ACE1 EAC2 PO (07:32)
--- NOTE | 2018-11-20 07:58 | NUR ---
AAOX4. ON ROOM AIR, IV TO LEFT FOREARM INFILITRATED, DISCONTINUED, CATHETER TIP INTACT, DRESSING TO LEFT ANKLE C/D/I, CAP REFILL TO LEFT TOES BRISK, <3 SEC, DENIES ANY NUMBNESS, BURINING, OR TINGLING OF FOOT, REFUSES SCD'S, REQUEST PAIN MEDICATION, DENIES ANY OTHER NEEDS OR DISCOMFORTS, BED LOWERED AND LOCKED, CALL LIGHT WITHIN REACH. CPOC
[2018-11-20 09:05] VITALS: BP 119/56
--- NOTE | 2018-11-20 10:00 | MORECARE ---
CASE MANAGEMENT DISCHARGE SUMMARY PATIENT: BEBETO PATTON UNIT: [id number] ADM DATE: 11/18/18 AGE: 23 : [birth year] SEX: F ROOM/BED: D.2237 AUTHOR: INOCENCIA CENTENO PHYSICIAN: REFERRING PHYSICIAN: BRIAN SAUCEDO MD DATE OF SERVICE: 11/20/18 Discharge Plan Patient Name: BEBETO PATTON [facility] [facility] 1995 Planned Disposition: Home Anticipated Discharge Date: 11/20/18 Discharge Date: Expected LOS: 2 Initial Reviewer: [email or web address] Initial Review Date: 11/20/2018 Generated: 11/20/18 11:00 am DCPIA - Discharge Planning Initial Assessment Updated by [email or web address]: Amanda Tena on 11/20/18 10:00 am * Is the patient Alert and Oriented? Yes * How many steps to enter\exit or inside your home? 2/0 * PCP Dr. Regan * Pharmacy [facility] * Preadmission Environment Home Alone * ADLs Independent * Equipment None * List name and contact numbers for known caregivers / representatives who currently or will assist patient after discharge: FLORES Patton - [facility] - [phone] * Verbal permission to speak to the caregivers and representatives has been obtained from the patient. Yes * Community resources currently utilized None * Additional services required to return to the preadmission environment? Yes * Can the patient safely return to the preadmission environment? Yes * Has this patient been hospitalized within the prior 30 days at any hospital? No Patient Name: BEBETO PATTON Page [id number] at 1000 All edits/amendments must be made on the electronic document DICTATION DATE: 11/20/18958 ORGANIZATIONAL DEVELOPMENT MANAGER: GRACIELA 11/20/18958 RPT#: [id number] DC DATE: STATUS: ADM IN [facility] [address] [place] [address] END OF REPORT
--- NOTE | 2018-11-20 10:09 | MORECARE ---
CASE MANAGEMENT DISCHARGE SUMMARY PATIENT: BEBETO PATTON UNIT: [id number] ADM DATE: 11/18/18 AGE: 23 : 94 SEX: F ROOM/BED: D.2237 AUTHOR: TARYN,DOC PHYSICIAN: REFERRING PHYSICIAN: BRIAN SAUCEDO MD DATE OF SERVICE: 11/20/18 Discharge Plan Patient Name: BEBETO PATTON Facility: [facility]:[place] : 1995 Planned Disposition: Home Anticipated Discharge Date: 11/20/18 Discharge Date: Expected LOS: 2 Initial Reviewer: [email or web address] Initial Review Date: 11/20/2018 Generated: 11/20/18 11:09 am Comments DCP- Discharge Planning Updated by [email or web address]: Amanda Tena on 11/20/18 9:[address] Patient Name: BEBETO PATTON Admission Status: Elective Accout number: [id number] Admission Date: 11-18-2018 : 1995 Admission Diagnosis: Attending: BRIAN SAUCEDO Current LOS: 2 Anticipated DC Date: 11-20-2018 Planned Disposition: Home [place] Insurance[place] [employer] Discharge Planning Comments: CM met with patient to complete initial dc planning assessment. CM educated patient on the CM role and verbal consent given by patient to complete assessment. Patient lives at home alone. At discharge patient plans to return and feels this is a safe discharge. States her father will pick her up and he is going to be staying with her for awhile CM discussed availability of home health, rehab services, and medical equipment. Patient states she will need crutches and signs [facility] form for [facility]. I called and left a message with Shani and order faxed. She states she has used crutches before and knows how to use them. CM will continue to follow and will assist as needed with dc plans/needs. Grinding Wheel Facer: Amanda Tena DCPIA - Discharge Planning Initial Assessment Updated by [email or web address]: Amanda Tena on 11/20/18 10:00 am * Is the patient Alert and Oriented? Yes * How many steps to enter\exit or inside your home? 2/0 * PCP Dr. Reagn * Pharmacy [facility] * Preadmission Environment Home Alone * ADLs Independent * Equipment None * List name and contact numbers for known caregivers / representatives who currently or will assist patient after discharge: FLORES Patton - [facility] - [phone] * Verbal permission to speak to the caregivers and representatives has been obtained from the patient. Yes * Community resources currently utilized None * Additional services required to return to the preadmission environment? Yes * Can the patient safely return to the preadmission environment? Yes * Has this patient been hospitalized within the prior 30 days at any hospital? No Coverage Notice Reviewer: [email or web address] Ruba Tena Notice Issued Date-Time: 11/20/2018 10:03 Notice Type: Patient Choice Letter Notice Delivered To: Patient Relationship to Patient: Self First Coat Operator Name: Delivery Method: HAND - Hand Delivered Alyssia Days: Prior Verbal Notification: Recipient Understood Notice: Yes Recipient Signature: Yes Med Rec Note Co-signed by Attending: Coverage Notice Comment: [facility] for [facility] home medical Last DP export: 11/20/18 9:00 a Patient Name: BEBETO PATTON Page 13018 at 1009 All edits/amendments must be made on the electronic document DICTATION DATE: 11/20/18 1008 RESTAURANT CASHIER: GRACIELA 11/20/18 1008 RPT#: [id number] DC DATE: STATUS: ADM IN [facility] [address] [place] [address] END OF REPORT
--- NOTE | 2018-11-20 10:23 | NUR ---
ADMINISTERED PRN PO PAIN MEDICATION FOR PAIN LEVEL 10/10. ICE TO RIGHT SHOULDER ELEVATED ON PILLOW, DENIES ANY OTHER NEEDS OR DISCOMFORTS, BED LOWERED AND LOCKED, CALL LIGHT WITHIN, CPOC
--- NOTE | 2018-11-20 11:11 | MORECARE ---
CASE MANAGEMENT DISCHARGE SUMMARY PATIENT: BEBETO PATTON UNIT: [id number] ADM DATE: 11/18/18 AGE: 23 : [birth year] SEX: F ROOM/BED: D.2237 AUTHOR: TARYN,DOC PHYSICIAN: REFERRING PHYSICIAN: BRIAN SAUCEDO MD DATE OF SERVICE: 11/20/18 Discharge Plan Patient Name: BEBETO PATTON Facility: [facility]:[place] : 1995 Planned Disposition: Home Anticipated Discharge Date: 11/20/18 Discharge Date: Expected LOS: 2 Initial Reviewer: [email or web address] Initial Review Date: 11/20/2018 Generated: 11/20/18 12:11 pm Comments DCP- Discharge Planning Updated by [email or web address]: Amanda Tena on 11/20/18 9:[address] Patient Name: BEBETO PATTON Admission Status: Elective Accout number: [id number] Admission Date: 11-18-2018 : 1995 Admission Diagnosis: Attending: BRIAN SAUCEDO Current LOS: 2 Anticipated DC Date: 11-20-2018 Planned Disposition: Home Primary Insurance: [place] [employer] Discharge Planning Comments: CM met with patient to complete initial dc planning assessment. CM educated patient on the CM role and verbal consent given by patient to complete assessment. Patient lives at home alone. At discharge patient plans to return and feels this is a safe discharge. States her father will pick her up and he is going to be staying with her for awhile CM discussed availability of home health, rehab services, and medical equipment. Patient states she will need crutches and signs [facility] form for [facility]. I called and left a message with Shani and order faxed. She states she has used crutches before and knows how to use them. CM will continue to follow and will assist as needed with dc plans/needs. Retail Interior Designer: Amanda Tena DCPIA - Discharge Planning Initial Assessment Updated by [email or web address]: Amanda Tena on 11/20/18 10:00 am * Is the patient Alert and Oriented? Yes * How many steps to enter\exit or inside your home? 2/0 * PCP Dr. Regan * Pharmacy [facility] * Preadmission Environment Home Alone * ADLs Independent * Equipment None * List name and contact numbers for known caregivers / representatives who currently or will assist patient after discharge: FLORES Patton - [facility] - [phone] * Verbal permission to speak to the caregivers and representatives has been obtained from the patient. Yes * Community resources currently utilized None * Additional services required to return to the preadmission environment? Yes * Can the patient safely return to the preadmission environment? Yes * Has this patient been hospitalized within the prior 30 days at any hospital? No External Providers External Provider: [facility] Next Contact Date: Service Request Date: Service Type: Resolution: Reviewer: Comments: Coverage Notice Reviewer: [email or web address] Ruba Tena Notice Issued Date-Time: 11/20/2018 10:03 Notice Type: Patient Choice Letter Notice Delivered To: Patient Relationship to Patient: Self Funeral Planner Name: Delivery Method: HAND - Hand Delivered Alyssia Days: Prior Verbal Notification: Recipient Understood Notice: Yes Recipient Signature: Yes Med Rec Note Co-signed by Attending: Coverage Notice Comment: [facility] for [facility] medical Last DP export: 11/20/18 9:09 a Patient Name: BEBETO PATTON Page 81755 at 1111 All edits/amendments must be made on the electronic document DICTATION DATE: 11/20/18 111 STUDENT SERVICES COUNSELOR: GRACIELA 11/20/18 1110 RPT#: [id number] DC DATE: STATUS: ADM IN [facility] [address] [place] [address] END OF REPORT
[2018-11-20 12:57] VITALS: BP 121/63
--- NOTE | 2018-11-20 13:50 | NUR ---
DISCHARGE INSTRUCTIONS GIVEN. VERBALIZES UNDERSTANDING, DENIES ANY QUESTIONS OR CONCERNS.
--- NOTE | 2018-11-21 09:41 | OP ---
PATIENT NAME: BEBETO PATTON MEDICAL RECORD: [id number] :89 LOCATION:D.MS [id number] ADMISSION DATE:11/18/18 SURGEON: BRIAN SAUCEDO MD DATE OF OPERATION: 11/19/2018 PREOPERATIVE DIAGNOSIS: Septic arthritis of the left ankle. POSTOPERATIVE DIAGNOSIS: Septic arthritis of the left ankle. PROCEDURE: Arthroscopic I&D of the left ankle. SURGEON: Brian Saucedo MD. VALIDATION SCIENTIST: Darius Montiel. INTRAOPERATIVE COMPLICATIONS: None. SUMMARY OF PATHOLOGIC FINDINGS: While the patient did not have justyna purulence noted in the ankle itself, she did have substantial amount of synovitis. The ankle joint itself was in excellent overall condition. INDICATION: This is a 23-year-old female who had been previously bitten by a dog. While the bite itself began to heal up nicely, she began to get swelling and substantial pain of the left ankle. Inflammatory markers were elevated and she did have substantial swelling. She was placed in the hospital, put on broad-spectrum antibiotics, and is scheduled for arthroscopic I&D as mentioned above. OPERATIVE SUMMARY IN DETAIL: After obtaining the appropriate preoperative orthopedic surgery consent as well as anesthetic consultation, evaluation and clearance, the patient was brought to the operating room and placed on the operating table in supine position. After general laryngeal mask airway was administered, tourniquet was inflated to the proximal aspect of the left lower extremity. Left lower extremity was then prepped and draped in routine sterile fashion. The leg was elevated and exsanguinated, tourniquet was inflated to 350 mmHg. Ankle distractor device was placed and distraction was carried out by Darius Montiel. A sample of the patient's synovial fluid was withdrawn and sent for cultures to include Gram stain, aerobic, and anaerobic cultures. At this point, arthroscopy was established in the ankle with both medial and lateral portals. Very gentle debridement and synovectomy was performed with arthroscopic ankle resector. This was then followed by irrigation of the ankle with approximately 3 liters of fluid. Having completed this, the fluid was removed. Portals were then closed with #4-0 Prolene by Darius Montiel. Sterile dressings were applied. The patient was awakened and taken to recovery room in stable condition. All final needle and sponge counts were correct. TRANSINT:[id number] Voice Confirmation ID: [id number] DOCUMENT ID: [id number] OPERATIVE REPORT [id number] BEBETO PATTON MD, BRIAN ANNE at 0941 CC: [id number] DICTATION DATE: 11/20/18633 LINE BUILDER: 11/20/18 1108 DIS IN 11/20/18 [facility] [address] [place] [id number]
--- NOTE | 2018-11-21 15:45 | MORECARE ---
CASE MANAGEMENT DISCHARGE SUMMARY PATIENT: BEBETO PATTON UNIT: [id number] ADM DATE: 11/18/18 AGE: 23 : [birth year] SEX: F ROOM/BED: D.2237 AUTHOR: TARYN,DOC PHYSICIAN: REFERRING PHYSICIAN: BRIAN SAUCEDO MD DATE OF SERVICE: 11/21/18 Discharge Plan Patient Name: BEBETO PATTON Facility: [facility]:[place] : 1995 Planned Disposition: Home Anticipated Discharge Date: 11/20/18 Discharge Date: 11/20/2018 Expected LOS: 2 Initial Reviewer: [email or web address] Initial Review Date: 11/20/2018 Generated: 11/21/18 4:45 pm Comments DCP- Discharge Planning Updated by [email or web address]: Amanda Tena on 11/20/18 9:[address] Patient Name: BEBETO PATTON Admission Status: Elective Accout number: [id number] Admission Date: 11-18-2018 : 1995 Admission Diagnosis: Attending: BRIAN SAUCEDO Current LOS: 2 Anticipated DC Date: 11-20-2018 Planned Disposition: Home Primary Insurance: [place] [employer] [place] Discharge Planning Comments: CM met with patient to complete initial dc planning assessment. CM educated patient on the CM role and verbal consent given by patient to complete assessment. Patient lives at home alone. At discharge patient plans to return and feels this is a safe discharge. States her father will pick her up and he is going to be staying with her for awhile CM discussed availability of home health, rehab services, and medical equipment. Patient states she will need crutches and signs KRYSTIAN form for [facility]. I called and left a message with Shani and order faxed. She states she has used crutches before and knows how to use them. CM will continue to follow and will assist as needed with dc plans/needs. Welder Gas: Amanda Tena DCPIA - Discharge Planning Initial Assessment Updated by [id number]: Amanda Tena on 11/20/18 10:00 am * Is the patient Alert and Oriented? Yes * How many steps to enter\exit or inside your home? 2/0 * PCP Dr. Regan * Pharmacy [facility] * Preadmission Environment Home Alone * ADLs Independent * Equipment None * List name and contact numbers for known caregivers / representatives who currently or will assist patient after discharge: FLORES Patton - [facility] - [phone] * Verbal permission to speak to the caregivers and representatives has been obtained from the patient. Yes * Community resources currently utilized None * Additional services required to return to the preadmission environment? Yes * Can the patient safely return to the preadmission environment? Yes * Has this patient been hospitalized within the prior 30 days at any hospital? No Coverage Notice Reviewer: [id number] Ruba Tena Notice Issued Date-Time: 11/20/2018 10:03 Notice Type: Patient Choice Letter Notice Delivered To: Patient Relationship to Patient: Self Staff Nuclear Medicine Technologist Name: Delivery Method: HAND - Hand Delivered Alyssia Days: Prior Verbal Notification: Recipient Understood Notice: Yes Recipient Signature: Yes Med Rec Note Co-signed by Attending: Coverage Notice Comment: [facility] for [facility] medical Last DP export: 11/20/18 10:11 a Patient Name: BEBETO PATTON Page 54134 at 1545 All edits/amendments must be made on the electronic document DICTATION DATE: 11/21/18 154 HOME DAY CARE PROVIDER: GRACIELA 11/21/18 1544 RPT#: [id number] DC DATE:11/20/18 STATUS: DIS IN [facility] [address] [place] [address] END OF REPORT
== END 2018-11-20 14:05 | disposition home or self-care (01) | DRG 493 ==
LOC: D.MS 15:32
PROVIDERS: Anesthesiology; Internal Medicine Nephrology; ADMIT Orthopaedic Surgery; ATTEND Orthopaedic Surgery
PROC: 0S9G0ZZ Drainage of Left Ankle Joint, Open Approach (ICD-10-PCS; principal; 2018-11-19 17:00)
DX: M00.9 Pyogenic arthritis, unspecified (principal); L03.116 Cellulitis of left lower limb

== ENCOUNTER → 2018-12-02 17:06 | Outpatient (CLI) | payer MEDICAID ==
[2018-11-19 11:42] VITALS: BMI 33.8
[~2018-12-02 17:06] MED LIST changes: +HYDROCODON-ACE1 EAC2 PO; +SULFAMETHOXAZOL1 TA3 PO
== END | disposition home or self-care (01) ==
LOC: D.LABREF 17:06
PROVIDERS: ATTEND Orthopaedic Surgery
DX: M25.572 Pain in left ankle and joints of left foot (principal); R22.42 Localized swelling, mass and lump, left lower limb

== ENCOUNTER 2018-12-19 14:01 | Emergency (ER) | payer BC ==
[~2018-12-19] VITALS: Ht 180.3 cm; Wt 110.5 kg
[2018-12-19 14:05] VITALS: Ht 180.3 cm; Wt 110.5 kg
[2018-12-19 14:31] LABS: APPEARANCE CLEAR (CLEAR); COLOR STRAW (YELLOW); NITRITE NEGATIVE (NEGATIVE); PROTEIN TRACE mg/dL (NEGATIVE); SPECIFIC GRAVITY 1.005 (1.005-1.020)
[2018-12-19 14:32] LABS: BILIRUBIN NEGATIVE (NEGATIVE); GLUCOSE NEGATIVE (NEGATIVE); KETONE NEGATIVE (NEGATIVE); UROBILINOGEN NORMAL (NORMAL)
[2018-12-19 14:34] LABS: BACTERIA FEW /hpf (NONE SEEN); EPITHELIAL CELLS 0-5 /hpf (0-5); RED CELLS - URINE NONE SEEN /hpf (0-5); WHITE CELLS - URINE 0-5 /hpf (0-5)
[2018-12-19 14:39] LABS: BASOPHILS 0.1 % (0-2); EOSINOPHILS 0.2 % (0-7); HEMATOCRIT 37.5 % (36.0-48.0); HEMOGLOBIN 13.5 g/dL (12-16); IMMATURE GRANULOCYTES 0.2 % (0-5); LYMPHOCYTES 22.3 % (15-50); MEAN PLATELET VOLUME 9.3 fL (7.4-10.4); NEUTROPHILS 72.2 % (40-80); RBC 4.36 10x6/uL (4.00-5.40); RDW 12.3 % (11.5-14.5); WBC 8.8 10x3/uL (4.8-10.8)
[2018-12-19 14:40] LABS: PLATELET COUNT 268 10x3/uL (130-400)
[2018-12-19 14:52] LABS: ALBUMIN 3.3 g/dL (3.4-5.0); ALKALINE PHOSPHATASE 63 U/L (46-116); ALT (SGPT) 24 U/L (10-68); BILIRUBIN - TOTAL 0.24 mg/dL (0.2-1.3); CALC OSMOLALITY 274 mosm/kg (275-300); CALCIUM 8.9 mg/dL (8.5-10.1); CARBON DIOXIDE 26.4 mmol/L (21.0-32.0); CHLORIDE - SERUM 102 mmol/L (98-107); CREATININE - SERUM 0.8 mg/dL (0.6-1.3); GLUCOSE 104 mg/dL (74-106); POTASSIUM - SERUM 3.5 mmol/L (3.5-5.1); PROTEIN - SERUM 7.4 g/dL (6.4-8.2); SODIUM 138 mmol/L (136-145); UREA NITROGEN 9 mg/dL (7-18); eGFR NON AFRICAN AMERICAN > 90 mL/min (90-120)
[2018-12-19 15:12] LABS: HCG - QUANTITATIVE (MATERNAL) 80693 mIU/mL; HCG SERUM POSITIVE (NEGATIVE)
[2018-12-19 15:51] VITALS: BP 115/63
== END 2018-12-19 15:52 | disposition home or self-care (01) ==
LOC: D.ER 14:01
PROVIDERS: Emergency Medicine
DX: O20.9 Hemorrhage in early pregnancy, unspecified (principal); Z3A.01 Less than 8 weeks gestation of pregnancy

== ENCOUNTER 2019-03-03 10:23 | Emergency (ER) | payer BC, MEDICAID ==
[~2019-03-03] VITALS: Ht 180.3 cm; Wt 109.1 kg
[2019-03-03 10:25] VITALS: Ht 180.3 cm; Wt 109.1 kg
[2019-03-03] MEDS ORDERED: PRENAVITE1 TAB PO (10:26)
[2019-03-03] MEDS ORDERED: PHENERGAN25 M1 PO (10:26)
[2019-03-03 11:21] LABS: BASOPHILS 0.2 % (0-2); EOSINOPHILS 0.1 % (0-7); HEMATOCRIT 37.5 % (36.0-48.0); HEMOGLOBIN 13.5 g/dL (12-16); IMMATURE GRANULOCYTES 0.2 % (0-5); LYMPHOCYTES 10.9 % (15-50); MCV 86.2 fL (80.0-100.0); MEAN PLATELET VOLUME 9.8 fL (7.4-10.4); MONOCYTES 6.6 % (2-11); PLATELET COUNT 192 10x3/uL (130-400); RBC 4.35 10x6/uL (4.00-5.40); RDW 12.9 % (11.5-14.5); WBC 10.4 10x3/uL (4.8-10.8)
[2019-03-03 11:22] LABS: APPEARANCE SL CLDY (CLEAR); BACTERIA MANY /hpf (NONE SEEN); BILIRUBIN NEGATIVE (NEGATIVE); COLOR YELLOW (YELLOW); GLUCOSE NEGATIVE (NEGATIVE); KETONE NEGATIVE (NEGATIVE); NITRITE NEGATIVE (NEGATIVE); PROTEIN NEGATIVE (NEGATIVE); SPECIFIC GRAVITY 1.015 (1.005-1.020); UROBILINOGEN NORMAL (NORMAL); WHITE CELLS - URINE 0-5 /hpf (0-5)
[2019-03-03 11:23] LABS: MUCUS <1+ /lpf (NONE SEEN)
[2019-03-03 11:40] LABS: ALBUMIN 3.1 g/dL (3.4-5.0); ALKALINE PHOSPHATASE 64 U/L (46-116); ALT (SGPT) 30 U/L (10-68); BILIRUBIN - TOTAL 0.35 mg/dL (0.2-1.3); CALC OSMOLALITY 272 mosm/kg (275-300); CALCIUM 8.7 mg/dL (8.5-10.1); CARBON DIOXIDE 23.9 mmol/L (21.0-32.0); CHLORIDE - SERUM 103 mmol/L (98-107); CREATININE - SERUM 0.6 mg/dL (0.6-1.3); GLUCOSE 75 mg/dL (74-106); PROTEIN - SERUM 6.4 g/dL (6.4-8.2); SODIUM 138 mmol/L (136-145); UREA NITROGEN 6 mg/dL (7-18); eGFR NON AFRICAN AMERICAN > 90 mL/min (90-120)
[2019-03-03 13:08] VITALS: BP 118/69
== END 2019-03-03 13:08 | disposition home or self-care (01) ==
LOC: D.ER 10:23
PROVIDERS: Family Medicine
DX: O26.892 Other specified pregnancy related conditions, second trimester (principal); Z3A.18 18 weeks gestation of pregnancy; R51 Headache; R55 Syncope and collapse

== ENCOUNTER 2019-03-15 20:04 | Outpatient (CLI) | payer MEDICAID ==
[2019-03-03 10:25] VITALS: BMI 33.5
[~2019-03-15 20:04] MED LIST changes: +PRENAVITE1 TAB PO
[2019-03-15 21:39] LABS: APPEARANCE CLEAR (CLEAR); BILIRUBIN NEGATIVE (NEGATIVE); COLOR YELLOW (YELLOW); GLUCOSE NEGATIVE (NEGATIVE); KETONE NEGATIVE (NEGATIVE); NITRITE NEGATIVE (NEGATIVE); PROTEIN NEGATIVE (NEGATIVE); UROBILINOGEN NORMAL (NORMAL)
== END 2019-03-15 22:02 ==
LOC: D.ER 20:04 → D.LDO 20:04 → EDSTATUS 20:57 → D.LDO 22:02
PROVIDERS: ATTEND Obstetrics & Gynecology
DX: O46.92 Antepartum hemorrhage, unspecified, second trimester (principal); Z3A.19 19 weeks gestation of pregnancy

== ENCOUNTER → 2019-04-27 14:25 | Outpatient (CLI) | payer MEDICAID ==
[2019-03-03 10:25] VITALS: BMI 33.5
[~2019-04-27 14:25] MED LIST changes: +NORMODYNE / TR100 MG PO
== END | disposition home or self-care (01) ==
LOC: D.LDO 14:25
PROVIDERS: ATTEND Student in an Organized Health Care Education/Training Program
DX: O26.899 Other specified pregnancy related conditions, unspecified trimester (principal)

== ENCOUNTER 2019-05-19 13:36 | Observation (INO) | payer MEDICAID ==
[~2019-05-19] VITALS: Ht 180.3 cm; Wt 109.8 kg
[~2019-05-19 13:36] MED LIST changes: -NORMODYNE / TR100 MG PO
[2019-05-19 15:17] VITALS: BP 126/72; BMI 33.8
[2019-05-19 15:22] LABS: BASOPHILS 0.1 % (0-2); EOSINOPHILS 0.3 % (0-7); HEMATOCRIT 37.2 % (36.0-48.0); HEMOGLOBIN 12.8 g/dL (12-16); IMMATURE GRANULOCYTES 0.1 % (0-5); MCH 31.6 pg (26.0-34.0); MCHC 34.4 g/dL (31.0-37.0); MCV 91.9 fL (80.0-100.0); MONOCYTES 4.6 % (2-11); NEUTROPHILS 76.9 % (40-80); PLATELET COUNT 229 10x3/uL (130-400); RBC 4.05 10x6/uL (4.00-5.40); RDW 12.8 % (11.5-14.5); WBC 9.3 10x3/uL (4.8-10.8)
[2019-05-19 15:35] LABS: APPEARANCE CLEAR (CLEAR); BILIRUBIN NEGATIVE (NEGATIVE); COLOR YELLOW (YELLOW); GLUCOSE NEGATIVE (NEGATIVE); KETONE NEGATIVE (NEGATIVE); NITRITE NEGATIVE (NEGATIVE); PROTEIN NEGATIVE (NEGATIVE); UROBILINOGEN NORMAL (NORMAL)
[2019-05-19 15:37] LABS: BACTERIA FEW /hpf (NEGATIVE); EPITHELIAL CELLS 0-5 /hpf (0-5); RED CELLS - URINE OCC /hpf (0-5); WHITE CELLS - URINE 0-5 /hpf (NEGATIVE)
[2019-05-19 15:45] LABS: CALC OSMOLALITY 273 mosm/kg (275-300); CALCIUM 8.2 mg/dL (8.5-10.1); CARBON DIOXIDE 26.6 mmol/L (21.0-32.0); CHLORIDE - SERUM 106 mmol/L (98-107); CREATININE - SERUM 0.5 mg/dL (0.6-1.3); GLUCOSE 86 mg/dL (74-106); POTASSIUM - SERUM 3.8 mmol/L (3.5-5.1); SODIUM 139 mmol/L (136-145); UREA NITROGEN 4 mg/dL (7-18); eGFR NON AFRICAN AMERICAN > 90 mL/min (90-120)
[2019-05-19 15:52] LABS: ALBUMIN 2.6 g/dL (3.4-5.0); ALKALINE PHOSPHATASE 93 U/L (46-116); ALT (SGPT) 24 U/L (10-68); BILIRUBIN - TOTAL 0.21 mg/dL (0.2-1.3); PROTEIN - SERUM 6.3 g/dL (6.4-8.2)
[2019-05-19 17:41] VITALS: BP 126/76
--- NOTE | 2019-05-19 19:14 | NUR ---
RECEIVED SHIFT REPORT FROM DAY SHIFT, INFORMED PT THAT I WILL BE BACK SHORTLY TO DO ASSESSMENT, PT VERBALIZES UNDERSTANDING, DENIES NEEDS AT THIS TIME
--- NOTE | 2019-05-19 19:20 | NUR ---
PT PLACED ON MONITORS AT THIS TIME, POSITIVE MOVEMENT AUDIBLE
--- NOTE | 2019-05-19 19:50 | NUR ---
REACTIVE NST NOTED. FHR BASELINE MODERATE, RATE 130, 2 ACCELS 10X10 NOTED WITH NO DECELS.
[2019-05-19 20:30] VITALS: BP 122/68
--- NOTE | 2019-05-19 20:30 | NUR ---
ASSESSMENT PER FLOW SHEET, VS OBTAINED, IV IN LEFT FA INTACT WITH NO REDNESS OR EDEMA, PT REPORTS FLATUS, BM THIS MORNING, AND VOIDING WITH NO DIFFICULTY, PT C/O HORTA, INFORMED PT THAT I WILL NEED TO NOTIFY THE DOCTOR CYBER FORENSIC SPECIALIST REGARDING SOMETHING FOR HORTA, PT VERBALIZES UNDERSTANDING, DENIES NEEDS AT THIS TIME, S/O IN BED WITH PT
--- NOTE | 2019-05-19 20:58 | NUR ---
DR RIOS NOTIFIED, REPORT OF PT'S C/O HORTA, ORDERS RECEIVED, READ BACK, AND VERFIED, SEE ORDERS
[2019-05-19] MEDS ORDERED: NORMODYNE / TR100 MG PO (21:30)
--- NOTE | 2019-05-19 21:30 | NUR ---
ADM TYLENOL PER MD ORDERS, SEE EMAR, DENIES NEEDS
--- NOTE | 2019-05-19 21:56 | NUR ---
RECEIVED NASAL SPRAY FROM PHARMACY, THIS RN TO ROOM, ADM NASAL SPRAY PER MD ORDERS, SEE KATIER, PT EATING BEEF STEW AT THIS TIME, PT REQUESTED AND SERVED FRESH H20, DENIES FURTHER NEEDS
--- NOTE | 2019-05-19 22:30 | NUR ---
PT RESTING WITH EYES CLOSED, RESP QUIET, NO DISTRESS NOTED, LEFT UNDISTURBED AT THIS TIME
[2019-05-20 00:25] VITALS: BP 107/56
--- NOTE | 2019-05-20 00:25 | NUR ---
PT RESTING WITH EYES CLOSED, AROUSES TO SOFT VERBAL STIMULATION, VS OBTAINED, DENIES NEEDS, PAIN, OR N/V
--- NOTE | 2019-05-20 02:40 | NUR ---
PT RESTING WITH EYES CLOSED, RESP QUIET, NO DISTRESS NOTED, LEFT UNDISTURBED AT THIS TIME
[2019-05-20 04:30] VITALS: BP 105/55
--- NOTE | 2019-05-20 04:30 | NUR ---
PT RESTING WITH EYES CLOSED, AROUSES TO OPENING OF DOOR, VS OBTAINED, DENIES NEEDS, PAIN, OR N/V
--- NOTE | 2019-05-20 06:24 | NUR ---
PT RESTING WITH EYES CLOSED, RESP QUIET, NO DISTRESS NOTED, LEFT UNDISTURBED AT THIS TIME
--- NOTE | 2019-05-20 08:25 | NUR ---
PT SITTING UP IN BED EATING BREAKFAST. RESP EVEN AND UNLABORED. NO ACUTE DISTRESS NOTED. PT DENIES PAIN AT THIS TIME. DENIES ANY CONTRACTIONS OR DISCOMFORT IN ABDOMEN. VOICES "FEELING THE BABY MOVE". IV TO LEFT FOREARM WITH NS @ 100ML/HR INFUSING VIA PUMP. SITE WITHOUT REDNESS OR EDEMA. DENIES FURTHER NEEDS AT THIS TIME. CL WITHIN REACH. ENCOURAGED TO CALL WITH NEEDS. CONTINUE POC
[2019-05-20 09:20] VITALS: BP 116/74
[2019-05-20 12:07] VITALS: BP 130/73
--- NOTE | 2019-05-20 12:07 | NUR ---
SITTING UP IN BED WATCHING TV. FAMILY AT BEDSIDE.
--- NOTE | 2019-05-20 13:09 | NUR ---
PT RESTING QUIETLY IN BED WATCHING TV. PT REPORTS HEADACHE 2/10 AT THIS TIME AFTER TAKING TYLENOL. DENIES FURTHER NEEDS AT THIS TIME. CL WITHIN REACH. ENCOURAGED TO CALL WITH NEEDS.
--- NOTE | 2019-05-20 14:45 | NUR ---
PT RESTING IN BED. NO ACUTE DISTRESS NOTED. RESP EVEN AND UNLABORED. REPORTS DECREASED PAIN D/T HEADACHE. IV ANTIBIOTIC ADMINISTERED PER MD ORDERS AT THIS TIME. DENIES FURTHER NEEDS AT THIS TIME. CL WITHIN REACH. ENCOURAGED TO CALL WITH NEEDS.
--- NOTE | 2019-05-20 16:02 | NUR ---
PT RESTING IN BED. NO ACUTE DISTRESS NOTED AT THIS TIME. DENIES FURTHER NEEDS AT THIS TIME. CL WITHIN REACH. ENCOURAGED TO CALL WITH NEEDS
[2019-05-20 16:23] VITALS: Ht 180.3 cm; Wt 109.8 kg
[2019-05-20 16:31] LABS: BASOPHILS 0.1 % (0-2); EOSINOPHILS 0.2 % (0-7); HEMATOCRIT 37.3 % (36.0-48.0); HEMOGLOBIN 12.7 g/dL (12-16); IMMATURE GRANULOCYTES 0.3 % (0-5); LYMPHOCYTES 19.2 % (15-50); MCH 31.3 pg (26.0-34.0); MCV 91.9 fL (80.0-100.0); MEAN PLATELET VOLUME 9.7 fL (7.4-10.4); MONOCYTES 4.8 % (2-11); NEUTROPHILS 75.4 % (40-80); PLATELET COUNT 223 10x3/uL (130-400); RBC 4.06 10x6/uL (4.00-5.40); RDW 12.9 % (11.5-14.5); WBC 10.3 10x3/uL (4.8-10.8)
[2019-05-20] MEDS ORDERED: ALBUTEROL SULF8.5 GM INH (16:32)
[2019-05-20 16:46] LABS: CALC OSMOLALITY 274 mosm/kg (275-300); CALCIUM 8.7 mg/dL (8.5-10.1); CHLORIDE - SERUM 105 mmol/L (98-107); CREATININE - SERUM 0.7 mg/dL (0.6-1.3); GLUCOSE 89 mg/dL (74-106); POTASSIUM - SERUM 3.8 mmol/L (3.5-5.1); SODIUM 139 mmol/L (136-145); UREA NITROGEN 6 mg/dL (7-18); eGFR NON AFRICAN AMERICAN > 90 mL/min (90-120)
[2019-05-20 17:12] VITALS: BP 129/72
[2019-05-20] MEDS ORDERED: OMNICEF300 MG PO (17:40)
--- NOTE | 2019-05-20 18:31 | NUR ---
PT IV D/C'D FOR DISCHARGE HOME. DISCUSSED DISCHARGE PAPERWORK. PROVIDED PT WITH EDUCATION REGARDING OMNICEF, ALBUTEROL INHALER AND DEHYDRATION. INSTRUCTED PT ON CONTINUING HOME MEDICATIONS PRIOR TO ADMIT TO UNIT. STRESSED IMPORTANCE OF FOLLOW UP APPOINTMENTS WITH DR. ARENAS AND DR. MICHAEL. PT REPORTS APPT TOMORROW 05/21/[address] ARENAS. PT TAKEN OUT VIA W/C TO PRIVATE VEHICLE WITH PERSONAL BELONGINGS.
== END 2019-05-20 18:34 | disposition home or self-care (01) ==
LOC: D.WS 13:36 → OBSVTIME 13:37 → D.WS 05-20 18:34
PROVIDERS: Family Medicine; ADMIT Family Medicine; ATTEND Family Medicine
DX: O99.513 Diseases of the respiratory system complicating pregnancy, third trimester (principal); J18.9 Pneumonia, unspecified organism; Z3A.28 28 weeks gestation of pregnancy; O26.893 Other specified pregnancy related conditions, third trimester; E86.0 Dehydration; O99.344 Other mental disorders complicating childbirth; F31.9 Bipolar disorder, unspecified; O26.53 Maternal hypotension syndrome, third trimester; O10.92 Unspecified pre-existing hypertension complicating childbirth

== ENCOUNTER → 2019-06-07 08:32 | Outpatient (CLI) | payer MEDICAID ==
[2019-05-20 16:23] VITALS: BMI 33.8
[~2019-06-07 08:32] MED LIST changes: +NORMODYNE / TR100 MG PO
[2019-06-07 09:16] LABS: APPEARANCE SL CLDY (CLEAR); COLOR YELLOW (YELLOW)
[2019-06-07 09:17] LABS: BILIRUBIN NEGATIVE (NEGATIVE); GLUCOSE NEGATIVE (NEGATIVE); KETONE NEGATIVE (NEGATIVE); NITRITE NEGATIVE (NEGATIVE); PROTEIN NEGATIVE (NEGATIVE); UROBILINOGEN NORMAL (NORMAL)
[2019-06-07 09:21] LABS: BACTERIA MODERATE /hpf (NEGATIVE); EPITHELIAL CELLS 0-5 /hpf (0-5); RED CELLS - URINE NONE SEEN /hpf (0-5)
--- NOTE | 2019-06-07 10:07 | NUR ---
DR. ARANA NOTIFIED AND REVIEWED PT'S BEHAVIOR AND ASSESSMENT RESULTS. PT IS A LOW RISK PER DR. ARANA. DR. ARANA STATED TO GIVE RESOURCES TO PT AT TIME OF DISCHARGE. NO FURTHER ORDERS AT THIS TIME. RESOURCES REVIEWED WITH PT. AND SHE VERBALIZED UNDERSTANDING. PT CURRENTLY UNDERGOING THERAPY FROM MENTAL HEALTH PROVIDER AND IS MED COMPLIANT. PT. STATES THAT SHE HAS A POSITVE OUTLOOK ON LIFE AND IS LOOKING FORWARD TO THE OF HER CHILD IN [place].
== END | disposition home or self-care (01) ==
LOC: D.LDO 08:32
PROVIDERS: ATTEND Obstetrics & Gynecology
DX: O26.899 Other specified pregnancy related conditions, unspecified trimester (principal); R10.9 Unspecified abdominal pain; R11.10 Vomiting, unspecified

== ENCOUNTER → 2019-06-17 12:18 | Outpatient (CLI) | payer MEDICAID ==
[2019-05-20 16:23] VITALS: BMI 33.8
== END | disposition home or self-care (01) ==
LOC: D.LDO 12:18
PROVIDERS: ATTEND Student in an Organized Health Care Education/Training Program
DX: O16.3 Unspecified maternal hypertension, third trimester (principal); Z3A.32 32 weeks gestation of pregnancy

== ENCOUNTER → 2019-06-23 09:49 | Outpatient (CLI) | payer MEDICAID ==
[2019-05-20 16:23] VITALS: BMI 33.8
== END | disposition home or self-care (01) ==
LOC: D.LDO 09:49
PROVIDERS: ATTEND Obstetrics & Gynecology
DX: O26.893 Other specified pregnancy related conditions, third trimester (principal); Z3A.33 33 weeks gestation of pregnancy; R03.0 Elevated blood-pressure reading, without diagnosis of hypertension

== ENCOUNTER → 2019-06-28 06:48 | Outpatient (CLI) | payer MEDICAID ==
[2019-05-20 16:23] VITALS: BMI 33.8
[2019-06-28 09:30] LABS: APPEARANCE HAZY (CLEAR); BACTERIA FEW /hpf (NEGATIVE); BILIRUBIN NEGATIVE (NEGATIVE); COLOR YELLOW (YELLOW); EPITHELIAL CELLS 0-5 /hpf (0-5); GLUCOSE NEGATIVE (NEGATIVE); KETONE NEGATIVE (NEGATIVE); MUCUS <1+ /lpf (NONE SEEN); NITRITE NEGATIVE (NEGATIVE); PROTEIN NEGATIVE (NEGATIVE); RED CELLS - URINE NONE SEEN /hpf (0-5); SPECIFIC GRAVITY 1.015 (1.005-1.020); UROBILINOGEN NORMAL (NORMAL); WHITE CELLS - URINE 0-5 /hpf (NEGATIVE)
== END | disposition home or self-care (01) ==
LOC: D.LDO 06:48
PROVIDERS: ATTEND Student in an Organized Health Care Education/Training Program
DX: O26.899 Other specified pregnancy related conditions, unspecified trimester (principal); R51 Headache

== ENCOUNTER → 2019-07-03 14:13 | Outpatient (CLI) | payer MEDICAID ==
[2019-05-20 16:23] VITALS: BMI 33.8
[2019-07-03 16:47] LABS: BASOPHILS 0.1 % (0-2); EOSINOPHILS 0.3 % (0-7); HEMATOCRIT 32.4 % (36.0-48.0); HEMOGLOBIN 11.3 g/dL (12-16); IMMATURE GRANULOCYTES 0.2 % (0-5); LYMPHOCYTES 23.5 % (15-50); MCH 31.1 pg (26.0-34.0); MCHC 34.9 g/dL (31.0-37.0); MCV 89.3 fL (80.0-100.0); MEAN PLATELET VOLUME 10.1 fL (7.4-10.4); MONOCYTES 5.2 % (2-11); NEUTROPHILS 70.7 % (40-80); PLATELET COUNT 203 10x3/uL (130-400); RBC 3.63 10x6/uL (4.00-5.40); RDW 12.6 % (11.5-14.5); WBC 8.9 10x3/uL (4.8-10.8)
[2019-07-03 16:58] LABS: CALC OSMOLALITY 274 mosm/kg (275-300); CARBON DIOXIDE 25.9 mmol/L (21.0-32.0); CHLORIDE - SERUM 104 mmol/L (98-107); CREATININE - SERUM 0.6 mg/dL (0.6-1.3); GLUCOSE 75 mg/dL (74-106); POTASSIUM - SERUM 3.6 mmol/L (3.5-5.1); SODIUM 139 mmol/L (136-145); UREA NITROGEN 6 mg/dL (7-18); eGFR NON AFRICAN AMERICAN > 90 mL/min (90-120)
[2019-07-03 17:04] LABS: ALBUMIN 2.4 g/dL (3.4-5.0); ALKALINE PHOSPHATASE 113 U/L (46-116); ALT (SGPT) 34 U/L (10-68); BILIRUBIN - TOTAL 0.34 mg/dL (0.2-1.3); PROTEIN - SERUM 5.9 g/dL (6.4-8.2)
[2019-07-03 17:05] LABS: UDS - AMPHET NEGATIVE QUAL (NEGATIVE); UDS - BARB POSITIVE QUAL (NEGATIVE); UDS - BENZO NEGATIVE QUAL (NEGATIVE); UDS - COCAINE NEGATIVE QUAL (NEGATIVE); UDS - OPIATE NEGATIVE QUAL (NEGATIVE); UDS - PCP NEGATIVE QUAL (NEGATIVE); UDS - THC NEGATIVE QUAL (NEGATIVE)
[2019-07-03 17:18] LABS: APPEARANCE CLEAR (CLEAR); BILIRUBIN NEGATIVE (NEGATIVE); COLOR YELLOW (YELLOW); GLUCOSE NEGATIVE (NEGATIVE); KETONE NEGATIVE (NEGATIVE); NITRITE NEGATIVE (NEGATIVE); PROTEIN TRACE mg/dL (NEGATIVE); UROBILINOGEN NORMAL (NORMAL)
[2019-07-03 17:20] LABS: BACTERIA FEW /hpf (NEGATIVE); EPITHELIAL CELLS 0-5 /hpf (0-5); RED CELLS - URINE 0-5 /hpf (0-5); WHITE CELLS - URINE 0-5 /hpf (NEGATIVE)
== END | disposition home or self-care (01) ==
LOC: D.LDO 14:13
PROVIDERS: ATTEND Student in an Organized Health Care Education/Training Program
DX: O16.9 Unspecified maternal hypertension, unspecified trimester (principal)

== ENCOUNTER → 2019-07-06 11:04 | Outpatient (CLI) | payer MEDICAID ==
[2019-05-20 16:23] VITALS: BMI 33.8
== END | disposition home or self-care (01) ==
LOC: D.LDO 11:04
PROVIDERS: ATTEND Student in an Organized Health Care Education/Training Program
DX: O26.93 Pregnancy related conditions, unspecified, third trimester (principal); Z3A.35 35 weeks gestation of pregnancy

== ENCOUNTER → 2019-07-13 10:59 | Outpatient (CLI) | payer MEDICAID ==
[2019-05-20 16:23] VITALS: BMI 33.8
[~2019-07-13 10:59] MED LIST changes: +REGLAN10 MG PO
== END | disposition home or self-care (01) ==
LOC: D.LDO 10:59
PROVIDERS: ATTEND Student in an Organized Health Care Education/Training Program
DX: O26.893 Other specified pregnancy related conditions, third trimester (principal); Z3A.36 36 weeks gestation of pregnancy; R03.0 Elevated blood-pressure reading, without diagnosis of hypertension

== ENCOUNTER → 2019-07-16 12:15 | Outpatient (CLI) | payer MEDICAID ==
[2019-05-20 16:23] VITALS: BMI 33.8
== END | disposition home or self-care (01) ==
LOC: D.LDO 12:15
PROVIDERS: ATTEND Student in an Organized Health Care Education/Training Program
DX: O13.3 Gestational [pregnancy-induced] hypertension without significant proteinuria, third trimester (principal); Z3A.36 36 weeks gestation of pregnancy; R10.9 Unspecified abdominal pain

== ENCOUNTER → 2019-07-17 04:20 | Outpatient (CLI) | payer MEDICAID ==
[2019-05-20 16:23] VITALS: BMI 33.8
== END | disposition home or self-care (01) ==
LOC: D.LDO 04:20
PROVIDERS: ATTEND Obstetrics & Gynecology
DX: O26.899 Other specified pregnancy related conditions, unspecified trimester (principal); Z3A.00 Weeks of gestation of pregnancy not specified; R10.9 Unspecified abdominal pain; R11.0 Nausea

== ENCOUNTER → 2019-07-20 10:56 | Outpatient (CLI) | payer MEDICAID ==
[2019-05-20 16:23] VITALS: BMI 33.8
== END | disposition home or self-care (01) ==
LOC: D.LDO 10:56
PROVIDERS: ATTEND Student in an Organized Health Care Education/Training Program
DX: O26.893 Other specified pregnancy related conditions, third trimester (principal); Z3A.37 37 weeks gestation of pregnancy; R03.0 Elevated blood-pressure reading, without diagnosis of hypertension

== ENCOUNTER → 2019-07-27 11:57 | Outpatient (CLI) | payer MEDICAID ==
[2019-05-20 16:23] VITALS: BMI 33.8
== END | disposition home or self-care (01) ==
LOC: D.LDO 11:57
PROVIDERS: ATTEND Student in an Organized Health Care Education/Training Program
DX: O16.3 Unspecified maternal hypertension, third trimester (principal); Z3A.38 38 weeks gestation of pregnancy

== ENCOUNTER → 2019-12-13 13:06 | Outpatient (CLI) | payer MEDICAID ==
[2019-08-04 13:03] VITALS: BMI 33.8
== END | disposition home or self-care (01) ==
LOC: D.US 13:06
PROVIDERS: ATTEND Student in an Organized Health Care Education/Training Program
DX: N64.59 Other signs and symptoms in breast (principal)

== ENCOUNTER 2020-12-18 07:35 | Emergency (ER) | payer BC ==
[~2020-12-18] VITALS: Ht 180.3 cm; Wt 116.4 kg
[2020-12-18 07:39] VITALS: BP 119/75; Ht 180.3 cm; Wt 116.4 kg
== END 2020-12-18 08:36 | disposition home or self-care (01) ==
LOC: D.ER 07:35
DX: T63.461A Toxic effect of venom of wasps, accidental (unintentional), initial encounter (principal); R11.10 Vomiting, unspecified